=== PATIENT | male | born 1995 | race Caucasian/White ===

== ENCOUNTER → 2020-06-04 13:06 | Outpatient (BNVA) | payer OTHER, SELFPAY | PROVIDERS: PCP Family Medicine; Visit Provider Surgery Vascular Surgery | DX: I83.11 Varicose veins of right lower extremity with inflammation (principal); Z98.890 Other specified postprocedural states | CPT/HCPCS: 99213 ==

== ENCOUNTER 2020-06-09 11:07 | Outpatient (RCR) | payer OTHER, SELFPAY | END 2020-10-01 15:12 | disposition home or self-care (01) | LOC: HO.WCC 11:07 | PROVIDERS: Visit Provider Physician Assistant | DX: Z09 Encounter for follow-up examination after completed treatment for conditions other than malignant neoplasm (principal); I87.301 Chronic venous hypertension (idiopathic) without complications of right lower extremity; I73.9 Peripheral vascular disease, unspecified; L40.9 Psoriasis, unspecified | CPT/HCPCS: 11042; 15271; 99212; Q4101 ==